=== PATIENT | male | born 1970 | race Caucasian/White ===

== ENCOUNTER 2017-09-12 12:54 | Emergency (ER) | payer MEDICAID, OTHER ==
[~2017-09-12] VITALS: Ht 172.7 cm; Wt 72.6 kg
[2017-09-12 15:00] VITALS: BP 118/72
== END 2017-09-12 15:24 | disposition home or self-care (01) ==
LOC: ER 12:56
DX: S86.911A Strain of unspecified muscle(s) and tendon(s) at lower leg level, right leg, initial encounter (principal); F17.210 Nicotine dependence, cigarettes, uncomplicated; X58.XXXA Exposure to other specified factors, initial encounter; Y93.89 Activity, other specified; Y92.89 Other specified places as the place of occurrence of the external cause; Y99.8 Other external cause status
CPT/HCPCS: 29505; 29515; 73562

== ENCOUNTER 2018-01-19 18:44 | Emergency (ER) | payer SELFPAY ==
[~2018-01-19] VITALS: Ht 175.3 cm; Wt 68.0 kg
[2018-01-19 18:53] VITALS: BP 126/84
[2018-01-19] MEDS ORDERED: TETANUS-DIPTH-ACEL PERTUSSIS 0.5ML SYRG IM ONE (21:30)
[2018-01-19] MEDS ORDERED: cefTRIAXone SOD 1,000 MG VL IM ONE (21:30)
== END 2018-01-19 21:56 | disposition home or self-care (01) ==
LOC: ER 18:44
DX: L02.512 Cutaneous abscess of left hand (principal); F17.210 Nicotine dependence, cigarettes, uncomplicated; F15.10 Other stimulant abuse, uncomplicated
CPT/HCPCS: 10060; 90471; 90715; 96372; 99284; J0696

== ENCOUNTER → 2020-11-13 | Emergency (ER) | payer OTHER ==
[~2020-11-13] VITALS: Ht 177.8 cm; Wt 77.1 kg
[2020-11-13 22:07] VITALS: BP 140/87
== END | disposition home or self-care (01) ==
LOC: EDUNIT# 20:25 → ER 20:31 → EDBD 20:31
DX: S42.002A Fracture of unspecified part of left clavicle, initial encounter for closed fracture (principal); S40.012A Contusion of left shoulder, initial encounter; S16.1XXA Strain of muscle, fascia and tendon at neck level, initial encounter; F15.10 Other stimulant abuse, uncomplicated; F17.210 Nicotine dependence, cigarettes, uncomplicated; F12.10 Cannabis abuse, uncomplicated; V43.52XA Car driver injured in collision with other type car in traffic accident, initial encounter; Y93.89 Activity, other specified; Y92.410 Unspecified street and highway as the place of occurrence of the external cause; Y99.8 Other external cause status
CPT/HCPCS: 29105; 36415; 70450; 71045; 72125; 80320

== ENCOUNTER 2022-03-03 19:43 | Emergency (ER) | payer MEDICAID ==
[~2022-03-03] VITALS: Ht 172.7 cm; Wt 68.0 kg
[2022-03-04] MEDS ORDERED: CLIN-188 PO (01:42)
[2022-03-04] MEDS ORDERED: cefTRIAXone SOD 1,000 MG VL IM ONE (01:45)
[2022-03-04] MEDS ORDERED: LIDOCAINE 1% HCL (LOCAL ANESTH.) INJ 20ML MDV ID ONE (02:30)
[2022-03-04 02:45] VITALS: BP 129/76
== END 2022-03-04 03:33 | disposition home or self-care (01) ==
LOC: ER 19:43
DX: L02.511 Cutaneous abscess of right hand (principal); F17.210 Nicotine dependence, cigarettes, uncomplicated; Z79.2 Long term (current) use of antibiotics
CPT/HCPCS: 10060; 96372; 99283; J0696; J2001

== ENCOUNTER 2022-03-04 17:11 | Inpatient (IN) | payer MEDICAID ==
[~2022-03-04] VITALS: Ht 172.7 cm; Wt 70.0 kg
[~2022-03-04 17:11] MED LIST: CLIN-188 PO
[2022-03-05 01:50] VITALS: BP 128/87
[2022-03-05] MEDS ORDERED: CEFTRIAXONE SODIUM 2 GM in D5W 5% 50 ML IV ONE (02:15)
[2022-03-05] MEDS ORDERED: VANCOMYCIN 1GM/250ML 250 ML IV ONE ×2 (02:15→05:30)
[2022-03-05 02:25] LABS: Basophils # (auto) 0.1 10 ^3/uL (0-0.2); Basophils % (auto) 0.7 % (0.0-2.0); Eosinophils # (auto) 0.2 10 ^3/uL (0-0.8); Eosinophils % (auto) 1.5 % (0.0-7.0); Hematocrit 39.8 % (41.0-53.0); Hemoglobin 13.4 g/dL (13.5-17.5); Lymphocytes # (auto) 1.9 10 ^3/uL (0.4-5.4); Lymphocytes % (auto) 16.5 % (10.0-50.0); Mean Corpuscular Hemoglobin 31.4 pg (28.0-32.0); Mean Corpuscular Hgb Conc. 33.6 g/dL (32.0-36.0); Mean Corpuscular Volume 93.6 fL (80.0-100.0); Monocytes # (auto) 0.8 10 ^3/uL (0-1.3); Monocytes % (auto) 7.4 % (0.0-12.0); Neutrophils # (auto) 8.5 10 ^3/uL (1.6-8.6); Neutrophils % (auto) 73.9 % (37.0-80.0); Red Blood Cells 4.26 10^6/uL (4.5-5.90); White Blood Cell 11.5 10^3/uL (4.4-10.8)
[2022-03-05 02:27] LABS: Albumin 3.8 g/dL (3.4-5.0); BUN/Creatinine Ratio 19.1; Calcium 9.6 mg/dL (8.5-10.1); Potassium 4.3 mmol/L (3.5-5.1)
[2022-03-05 02:29] LABS: Bilirubin, Total 0.5 mg/dL (0.2-1.0); Total Protein 7.1 g/dL (6.4-8.2)
[2022-03-05 02:56] LABS: CRP High Sensitivity 6.21 mg/dL (< 0.3)
[2022-03-05] MEDS ORDERED: HYDROcodone-ACET 5/325MG TAB PO ONE (03:45)
[2022-03-05] MEDS ORDERED: ONDANSETRON ODT 4 MG TAB PO ONE (03:45)
[2022-03-05] MEDS ORDERED: VANCOMYCIN PER PHARMACY 0 MG IV SCH (05:00)
[2022-03-05] MEDS ORDERED: ACETAMINOPHEN 325 MG TAB PO PRN (05:00)
[2022-03-05] MEDS ORDERED: DOCUSATE SOD 100 MG CAP PO PRN (05:00)
[2022-03-05] MEDS ORDERED: NITROGLYCERIN 0.4 MG SL TAB SL PRN (05:00)
[2022-03-05] MEDS ORDERED: HYDROcodone-ACET 5/325MG TAB PO PRN (05:00)
[2022-03-05] MEDS ORDERED: MORPHINE SULFATE INJ 2 MG/ml SYRG IV PRN (05:00)
[2022-03-05] MEDS ORDERED: ONDANSETRON HCL 4 MG/2 ML VIAL IV PRN (05:00)
[2022-03-05] MEDS ORDERED: SODIUM CHLOR 0.9% PF (SALINE LOCK) 10ML VIAL/SYR IV SCH (06:00)
[2022-03-05] MEDS ORDERED: CLINDAMYCIN 600MG IV 50 ML IV SCH (06:00)
[2022-03-05 07:15] LABS: Basophils # (auto) 0 10 ^3/uL (0-0.2); Basophils % (auto) 0.4 % (0.0-2.0); Eosinophils # (auto) 0.1 10 ^3/uL (0-0.8); Eosinophils % (auto) 0.8 % (0.0-7.0); Hematocrit 40.2 % (41.0-53.0); Hemoglobin 13.4 g/dL (13.5-17.5); Lymphocytes # (auto) 1.5 10 ^3/uL (0.4-5.4); Mean Corpuscular Hgb Conc. 33.3 g/dL (32.0-36.0); Monocytes # (auto) 0.7 10 ^3/uL (0-1.3); Monocytes % (auto) 7.2 % (0.0-12.0); Neutrophils # (auto) 7.9 10 ^3/uL (1.6-8.6); Neutrophils % (auto) 76.6 % (37.0-80.0); Red Blood Cells 4.32 10^6/uL (4.5-5.90); White Blood Cell 10.3 10^3/uL (4.4-10.8)
[2022-03-05 07:29] LABS: Albumin 3.5 g/dL (3.4-5.0); Calcium 9.2 mg/dL (8.5-10.1); Potassium 4.3 mmol/L (3.5-5.1)
[2022-03-05 07:34] LABS: Bilirubin, Total 0.8 mg/dL (0.2-1.0); Total Protein 6.5 g/dL (6.4-8.2)
[2022-03-05 08:18] LABS: BUN/Creatinine Ratio 18.9
[2022-03-05] MEDS ORDERED: MULTIPLE VITAMIN TAB PO SCH (10:00)
[2022-03-05] MEDS ORDERED: ASCORBIC ACID 500 MG TAB PO SCH (10:00)
[2022-03-05] MEDS ORDERED: ZINC SULFATE 220mg CAP or TAB PO SCH (10:00)
== END 2022-03-05 09:09 | disposition left against medical advice (07) | DRG 383 ==
LOC: ER 17:11 → OVERFLOW 03-05 05:07
PROVIDERS: ADMIT Nurse Practitioner Family; ATTEND Nurse Practitioner
DX: L02.511 Cutaneous abscess of right hand (principal); D72.829 Elevated white blood cell count, unspecified; F17.210 Nicotine dependence, cigarettes, uncomplicated; R79.82 Elevated C-reactive protein (CRP); S61.001A Unspecified open wound of right thumb without damage to nail, initial encounter; X58.XXXA Exposure to other specified factors, initial encounter; Y93.89 Activity, other specified; Y92.89 Other specified places as the place of occurrence of the external cause; Y99.8 Other external cause status; Z53.29 Procedure and treatment not carried out because of patient's decision for other reasons
CPT/HCPCS: 36415; 73130; 80053; 85025; 85652; 86141; 87426; G0378; J0696; J7060; Q0162

== ENCOUNTER 2022-04-25 07:58 | Emergency (ER) | payer MEDICAID ==
[~2022-04-25] VITALS: Ht 162.6 cm; Wt 68.0 kg
[2022-04-25 08:16] VITALS: BP 149/68
== END 2022-04-25 08:46 | disposition left against medical advice (07) ==
LOC: ER 07:58 → EDUNIT# 07:58 → EDBD 07:58 → ER 08:28
DX: T40.411A Poisoning by fentanyl or fentanyl analogs, accidental (unintentional), initial encounter (principal); Z53.21 Procedure and treatment not carried out due to patient leaving prior to being seen by health care provider; Y92.89 Other specified places as the place of occurrence of the external cause

== ENCOUNTER 2022-11-23 08:36 | Emergency (ER) | payer MEDICAID ==
[~2022-11-23] VITALS: Ht 170.2 cm; Wt 59.4 kg
[2022-11-23 08:53] VITALS: BP 115/80; PULSE 95; RESP 18; TEMP 97.9; O2SAT 96
[2022-11-23] MEDS ORDERED: cefTRIAXone SOD 1,000 MG VL IM ONE (10:15)
[2022-11-23] MEDS ORDERED: ACETAMINOPHEN 500 MG TAB PO ONE (10:15)
[2022-11-23] MEDS ORDERED: IBUPROFEN 600 MG TAB PO ONE (10:15)
[2022-11-23] MEDS ORDERED: AUG875T PO (10:32)
== END 2022-11-23 11:15 | disposition home or self-care (01) ==
LOC: ER 08:36
DX: S90.862A Insect bite (nonvenomous), left foot, initial encounter (principal); F17.210 Nicotine dependence, cigarettes, uncomplicated; Z79.2 Long term (current) use of antibiotics; W57.XXXA Bitten or stung by nonvenomous insect and other nonvenomous arthropods, initial encounter; Y93.89 Activity, other specified; Y92.89 Other specified places as the place of occurrence of the external cause; Y99.8 Other external cause status
CPT/HCPCS: 96372; 99283; J0696

== ENCOUNTER 2023-05-08 09:49 | Emergency (ER) | payer MEDICAID ==
[~2023-05-08] VITALS: Ht 170.2 cm; Wt 74.4 kg
[~2023-05-08 09:49] MED LIST changes: +AUG875T PO
[2023-05-08 10:12] VITALS: BP 113/95; PULSE 71; RESP 16; TEMP 98.4; O2SAT 99
[2023-05-08] MEDS ORDERED: CEPH500C PO (10:38)
[2023-05-08] MEDS ORDERED: IBUP1TAB5 PO (10:38)
[2023-05-08] MEDS ORDERED: AUG875T PO (10:38)
== END 2023-05-08 10:43 | disposition home or self-care (01) ==
LOC: ER 09:49
DX: H00.012 Hordeolum externum right lower eyelid (principal); F12.10 Cannabis abuse, uncomplicated; F15.10 Other stimulant abuse, uncomplicated; F17.210 Nicotine dependence, cigarettes, uncomplicated

== ENCOUNTER 2023-07-13 19:27 | Emergency (ER) | payer MEDICAID ==
[~2023-07-13] VITALS: Ht 170.2 cm; Wt 94.1 kg
[~2023-07-13 19:27] MED LIST changes: +CEPH500C PO; +IBUP1TAB5 PO
[2023-07-13 20:00] VITALS: BP 121/82; PULSE 71; RESP 17; O2SAT 98
== END 2023-07-14 01:20 | disposition left against medical advice (07) ==
LOC: ER 19:27
DX: Z48.00 Encounter for change or removal of nonsurgical wound dressing (principal); Z53.21 Procedure and treatment not carried out due to patient leaving prior to being seen by health care provider